=== PATIENT | female | born 1955 | race African-American/Black ===

== ENCOUNTER 2017-09-15 16:42 | Emergency (ER) | payer MEDICARE, OTHER ==
[~2017-09-15] VITALS: Ht 139.7 cm; Wt 53.1 kg
[~2017-09-15 16:42] MED LIST: ABACAVIR300 MG ORAL; CALCIUM + VITA1 EAC1 PO; CIPRO500 MG PO; COLACE100 MG ORAL; FERROUS SULFAT325 MG ORAL; JANUVIA50 MG ORAL; LORAZEPAM2 MG ORAL; LORAZEPAM2 MG/1 M4 ORAL; METRONIDAZOLE500 MG ORAL; TIVICAY50 MG ORAL; ZYPREXA2.5 MG ORAL
[2017-09-15 18:14] LABS: BASOPHILS % (AUTO) 0.8 % (0.0-2.0); EOSINOPHILS % (AUTO) 1.8 % (0.0-3.0); HEMATOCRIT 35.5 % (37.0-47.0); HEMOGLOBIN 11.5 G/DL (12.0-16.0); LYMPHOCYTES % (AUTO) 17.8 % (20.0-45.0); MEAN CORPUSCULAR VOLUME 103 FL (80-99); NEUTROPHILS % (AUTO) 69.6 % (45.0-75.0); PLATELET COUNT 129 K/UL (150-450); RED BLOOD COUNT 3.46 M/UL (4.20-5.40); RED CELL DISTRIBUTION WIDTH 11.9 % (11.6-14.8); WHITE BLOOD COUNT 8.3 K/UL (4.8-10.8)
[2017-09-15 18:15] LABS: APPEARANCE,URINE SLIGHTLY CLOUDY; BILIRUBIN, URINE NEGATIVE (NEGATIVE); GLUCOSE, URINE (UA) NEGATIVE (NEGATIVE); KETONES,URINE 1+ (NEGATIVE); LEUKOCYTE ESTERASE ,URINE 2+ (NEGATIVE); NITRITE,URINE NEGATIVE (NEGATIVE); PH,URINE 5 (4.5-8.0); PROTEIN,URINE 3+ (NEGATIVE); UROBILINOGEN,URINE NORMAL MG/DL (0.0-1.0)
[2017-09-15 18:17] LABS: COLOR,URINE YELLOW
[2017-09-15 18:27] LABS: ANION GAP 8 mmol/L (5-15); BLOOD UREA NITROGEN 22 mg/dL (7-18); CALCIUM 8.3 MG/DL (8.5-10.1); CARBON DIOXIDE 23 MMOL/L (21-32); CHLORIDE 105 MMOL/L (98-107); CREATININE 1.6 MG/DL (0.55-1.30); INR 1.1 (0.9-1.1); SODIUM 136 MMOL/L (136-145)
[2017-09-15 18:33] LABS: ALANINE AMINOTRANSFERASE 21 U/L (12-78); ALBUMIN 2.9 G/DL (3.4-5.0); ALBUMIN/GLOBULIN RATIO 0.6 (1.0-2.7); ALKALINE PHOSPHATASE 212 U/L (46-116); ASPARTATE AMINO TRANSFERASE 31 U/L (15-37); BILIRUBIN,TOTAL 0.4 MG/DL (0.2-1.0)
[2017-09-15] MEDS ORDERED: Morphine Sulfate 4mg/ml Inj IVP ONE (19:15)
[2017-09-15 19:36] VITALS: BP 118/68
[2017-09-15] MEDS ORDERED: metroNIDAZOLE 500mg tab ORAL ONE (19:45)
[2017-09-15] MEDS ORDERED: Ciprofloxacin 500mg tab ORAL ONE (19:45)
[2017-09-15] MEDS ORDERED: ACETAMINOPHEN-1 EAC1 ORAL (19:57)
[2017-09-15] MEDS ORDERED: METRONIDAZOLE500 MG ORAL (19:57)
[2017-09-15] MEDS ORDERED: CIPROFLOXACIN750 M1 PO (19:57)
[2017-09-15 20:07] VITALS: BP 118/68
--- NOTE | 2017-09-15 23:03 | Emergency Room Report ---
History of Present Illness General Chief Complaint: Abdominal Pain Source: Patient Present Illness HPI The patient is a 61-year-old female with a history of diverticulosis presenting for left lower abdominal pain for the past 2 days. She has had diverticulitis in the past and states that this feels similar. Pain is a 9/10 sharp sensation and does not radiate from there. No known provoking or relieving factors. She also admits to nausea. She denies other symptoms including vomiting, diarrhea, constipation, melena, hematochezia, fever, chills Allergies: Coded Allergies: ASPIRIN (Unverified Allergy, Unknown, Rash, 09/15/17) PENICILLINS (Unverified Allergy, Unknown, Rash, 09/15/17) Patient History Past Medical History: see triage record Pertinent Family History: none Reviewed Nursing Documentation: PMH: Agreed, PSxH: Agreed Nursing Documentation-PMH Past Medical History: No History, Except For Hx Diabetes: Yes Review of Systems All Other Systems: negative except mentioned in HPI Physical Exam Vital Signs Date Time Temp Pulse Resp B/P (MAP) Pulse Ox O2 Delivery O2 Flow Rate FiO2 09/15/17 17:01 98.4 90 18 111/72 97 Room Air Sp02 EP Interpretation: reviewed, normal General Appearance: no apparent distress, alert, GCS 15, non-toxic Head: normocephalic, atraumatic Eyes: bilateral eye normal inspection, bilateral eye PERRL Respiratory: chest non-tender, lungs clear, normal breath sounds, speaking full sentences Cardiovascular #1: regular rate, rhythm, no edema Gastrointestinal: normal bowel sounds, no mass, non-distended, tenderness - LLQ Musculoskeletal: back normal, gait/station normal, normal range of motion, non- tender Neurologic: alert, oriented x3, responsive, motor strength/tone normal, sensory intact, speech normal Psychiatric: judgement/insight normal, memory normal, mood/affect normal, no suicidal/homicidal ideation Skin: normal color, no rash, warm/dry, well hydrated Medical Decision Making PA Attestation Dr. Fox is my supervising physician. Patient management was discussed with my supervising physician Diagnostic Impression: Primary Impression: Diverticulitis ER Course The patient is a 61-year-old female with a history of diverticulosis presenting for left lower abdominal pain for the past 2 days Differential diagnoses considered include but not limited to gastritis, pancreatitis, appendicitis, AAA, ACS, , UTI PE: afebrile. NAD Abdomen is soft. There is tenderness to palpation of the left lower cordate only. No CVA tenderness. Normal bowel sounds. Nondistended Bloodwork unremarkable. No leukocytosis CT scan shows diverticulitis The patient is stable and will be treated with outpatient antibiotics. She is given her first dose here. She was given strict return precautions including if she gets a fever or if pain continues past 3 days. She understands Laboratory Tests Test 09/15/17 17:54 White Blood Count 8.3 K/UL (4.8-10.8) Red Blood Count 3.46 M/UL (4.20-5.40) L Hemoglobin 11.5 G/DL (12.0-16.0) L Hematocrit 35.5 % (37.0-47.0) L Mean Corpuscular Volume 103 FL (80-99) H Mean Corpuscular Hemoglobin 33.1 PG (27.0-31.0) H Mean Corpuscular Hemoglobin Concent 32.2 G/DL (32.0-36.0) Red Cell Distribution Width 11.9 % (11.6-14.8) Platelet Count 129 K/UL (150-450) L Mean Platelet Volume 6.7 FL (6.5-10.1) Neutrophils (%) (Auto) 69.6 % (45.0-75.0) Lymphocytes (%) (Auto) 17.8 % (20.0-45.0) L Monocytes (%) (Auto) 10.0 % (1.0-10.0) Eosinophils (%) (Auto) 1.8 % (0.0-3.0) Basophils (%) (Auto) 0.8 % (0.0-2.0) Prothrombin Time 12.0 SEC (9.30-11.50) H Prothrombin Time INR 1.1 (0.9-1.1) PTT 26 SEC (23-33) Urine Color Yellow Urine Appearance Slightly cloudy Urine pH 5 (4.5-8.0) Urine Specific [place] 1.020 (1.005-1.035) Urine Protein 3+ (NEGATIVE) H Urine Glucose (UA) Negative (NEGATIVE) Urine Ketones 1+ (NEGATIVE) H Urine Occult Blood 5+ (NEGATIVE) H Urine Nitrite Negative (NEGATIVE) Urine Bilirubin Negative (NEGATIVE) Urine Urobilinogen Normal MG/DL (0.0-1.0) Urine Leukocyte Esterase 2+ (NEGATIVE) H Urine RBC Tntc /HPF (0 - 2) H Urine WBC 2-4 /HPF (0 - 2) Urine Squamous Epithelial Cells Moderate /LPF (NONE/OCC) H Urine Bacteria Few /HPF (NONE) Sodium Level 136 MMOL/L (136-145) Potassium Level 5.0 MMOL/L (3.5-5.1) Chloride Level 105 MMOL/L (98-107) Carbon Dioxide Level 23 MMOL/L (21-32) Anion Gap 8 mmol/L (5-15) Blood Urea Nitrogen 22 mg/dL (7-18) H Creatinine 1.6 MG/DL (0.55-1.30) H Estimate Glomerular Filtration Rate 33.0 mL/min (>60) Glucose Level 179 MG/DL (74-106) H Calcium Level 8.3 MG/DL (8.5-10.1) L Total Bilirubin 0.4 MG/DL (0.2-1.0) Aspartate Amino Transferase (AST) 31 U/L (15-37) Alanine Aminotransferase (ALT) 21 U/L (12-78) Alkaline Phosphatase 212 U/L (46-116) H Total Protein 8.1 G/DL (6.4-8.2) Albumin 2.9 G/DL (3.4-5.0) L Globulin 5.2 g/dL Albumin/Globulin Ratio 0.6 (1.0-2.7) L Lipase 185 U/L (73-393) Lab Results Impression No leukocytosis CMP unremarkable CT/MRI/US Diagnostic Results CT/MRI/US Diagnostic Results : Imaging Test Ordered: CT scan of abdomen pelvis Impression There is diverticulitis of the distal descending and proximal sigmoid colon. No signs of abscess. No free fluid or obstruction Last Vital Signs Date Time Temp Pulse Resp B/P (MAP) Pulse Ox O2 Delivery O2 Flow Rate FiO2 09/15/17 20:07 98.4 88 18 118/68 97 Room Air Status: improved Disposition: HOME, SELF-CARE Condition: Improved Scripts Acetaminophen With Codeine (T#3) (TYLENOL #3 TAB*) Y Tab 1 TAB ORAL Q6HR Y for For Pain, #15 TAB Prov: ESAU MARTINEZ P.A. 09/15/17 Metronidazole* (FLAGYL*) 500 Mg Tablet 500 MG ORAL QID, #40 TAB 0 Refills Prov: ESAU MARTINEZ 09/15/17 Ciprofloxacin HCl (Ciprofloxacin HCl) 750 Mg Tablet 750 MG PO BID, #20 TAB Prov: ESAU MARTINEZ 09/15/17 Patient Instructions: Diverticulitis Additional Instructions: I discussed my findings with the patient. All questions and concerns have been answered. Treatment and medication compliance have been addressed. I advised the patient that they need to follow up with PMD in 3-5 days. Return to ED if symptoms worsen, new symptoms arise, or if needed for any reason. Patient verbalized understanding of discharge instructions. Return to the emergency department if you notice fever or continued pain past 3 days. ESAU MARTINEZ Sep 15, 2017 23:03
--- NOTE | 2017-09-16 09:04 | Diagnostic Imaging Report ---
Indication: Abdominal pain, nausea Technique: Spiral acquisitions obtained through the abdomen and pelvis. No oral contrast utilized, per emergency room physician request No IV contrast utilized, per referring physician request.. Multiplanar reconstructions were generated. Total dose length product 570.22 mGycm. CTDIvol(s) 12.91 mGy. Dose reduction achieved using automated exposure control Comparison: None Findings: There is fairly extensive colonic diverticulosis. There is infiltration of the pericolonic fat adjacent to the proximal sigmoid colon as well as fluid/phlegmon tracking along the adjacent fascial planes. There is associated wall thickening. No extraluminal gas or contained extraluminal fluid collections are demonstrated. The appendix is normal. No small bowel distention. No free or loculated intraperitoneal air or fluid is evident. Distal esophagus, stomach, duodenum are unremarkable. Normal caliber small bowel. Lack of IV contrast limits assessment of the solid organs. The liver demonstrates surface micronodularity. No focal abnormality. The gallbladder is surgically absent. No biliary ductal dilatation. The pancreas, spleen, adrenals are unremarkable. The kidneys demonstrate no parenchymal abnormality. There is slight bilateral perinephric fat stranding 6 x 4 cm soft tissue density is seen in the adnexal region to the right of midline. Uncertain as to whether this is part of the uterus or represents adnexal pathology. The bones are unremarkable. The included lung bases are clear. Impression: Positive for uncomplicated acute sigmoid diverticulitis Hepatic surface nodularity, suggestive of cirrhosis Right adnexal mass versus unusual uterine configuration versus exophytic uterine fibroid. Recommend further evaluation with pelvic sonography Evidence of prior cholecystectomy This agrees with the preliminary interpretation provided overnight by [facility] teleradiology service. The CT scanner at [facility] is accredited by the [employer] and the scans are performed using protocols designed to limit radiation exposure to as low as reasonably achievable to attain images of sufficient resolution adequate for diagnostic evaluation.
== END 2017-09-15 20:07 | disposition home or self-care (01) ==
LOC: EMR 19:06
DX: K57.32 Diverticulitis of large intestine without perforation or abscess without bleeding (principal); E11.9 Type 2 diabetes mellitus without complications; Z90.49 Acquired absence of other specified parts of digestive tract
CPT/HCPCS: 36415; 74176; 80053; 81003; 83690; 85025; 85610; 85730; 96361; 96374; 99284; J2270

== ENCOUNTER 2017-10-24 13:14 | Emergency (ER) | payer MEDICARE, OTHER ==
[~2017-10-24] VITALS: Ht 139.7 cm; Wt 53.1 kg
[~2017-10-24 13:14] MED LIST changes: +ACETAMINOPHEN-1 EAC1 ORAL; +CIPROFLOXACIN750 M1 PO
[2017-10-24 13:38] VITALS: BP 130/70
--- NOTE | 2017-10-24 13:50 | Emergency Room Report ---
History of Present Illness General Chief Complaint: Abdominal Pain Present Illness HPI 62 yo female complains of epigastric pain x3days. Denies radiation of pain. Also complains of nausea, no vomiting. Denies diarrhea, constipation. No chest pain, SOB, fever. Seen in ER one month ago for diverticulitis; states pain does not feel like then. Denies hx of GERD, PUD Denies use of pain medication today for relief of symptoms Hx of HIV, viral load normal, CD4 normal, current on medications Patient reports blood was in water of stool this morning; reports straining. Denies pencil-like stool. Allergies: Coded Allergies: ASPIRIN (Unverified Allergy, Unknown, Rash, 09/15/17) PENICILLINS (Unverified Allergy, Unknown, Rash, 09/15/17) Patient History Past Medical History: see triage record Reviewed Nursing Documentation: PMH: Agreed, PSxH: Agreed Nursing Documentation-PMH Hx Diabetes: Yes Hx Gastrointestinal Problems: Yes - diviticulitis Hx Dialysis: No - Kidney Disease Review of Systems All Other Systems: negative except mentioned in HPI Physical Exam Vital Signs Date Time Temp Pulse Resp B/P (MAP) Pulse Ox O2 Delivery O2 Flow Rate FiO2 10/24/17 13:28 98.7 84 18 129/70 98 Room Air 98.8 Sp02 EP Interpretation: reviewed, normal General Appearance: no apparent distress, alert, GCS 15, non-toxic Head: normocephalic, atraumatic Eyes: bilateral eye normal inspection, bilateral eye PERRL ENT: hearing grossly normal, normal pharynx, no angioedema, normal voice Neck: full range of motion, supple/symm/no masses Respiratory: chest non-tender, lungs clear, normal breath sounds, no respiratory distress, speaking full sentences Cardiovascular #1: regular rate, rhythm, no edema Gastrointestinal: normal bowel sounds, soft, no mass, non-distended, no guarding, no rebound, tenderness - epigastric, LUQ, other - negative Rovsing, negative TTP at McBurney's point, negative Rodriguez sign Rectal: normal rectal tone, heme positive stool - stool brown Genitourinary: no CVA tenderness Musculoskeletal: back normal, digits/nails normal, gait/station normal, normal range of motion, non-tender Neurologic: alert, oriented x3, responsive, motor strength/tone normal, sensory intact, speech normal Psychiatric: mood/affect normal Skin: no rash Lymphatic: no adenopathy Medical Decision Making PA Attestation Dr. Otero is my supervising Physician whom patient management has been discussed with. Diagnostic Impression: Primary Impression: Epigastric abdominal pain ER Course Patient presents to ER complaining of epigastric pain. DDx considered but are not limited to GERD, gastritis, PUD, pancreatitis, UTI. Patient vital signs WNL, patient is afebrile. Ordered labs, pain medication, Zofran, and Pepcid. Does not require imaging at this time. ER COURSE: Labs results unremarkable; consistent with previous visit to ER. Results discussed with patient. Patient resting comfortably in no acute distress, patient reports improvement of pain symptoms since initial presentation to ER. Patient able to tolerate foods PO and ambulate independently while in ER. Results discussed with Dr. Otero; agrees with current treatment and plan; patient is stable for discharge home and outpatient follow-up. DISCHARGE: Rx provided for Prilosec Rx provided for Tylenol At this time pt is stable for d/c to home with strict ER precautions. Patient is resting, in no acute distress, nontoxic appearing, able to ambulate without assistance. Will provide with patient care instructions and any necessary prescriptions. Patient to take medication as instructed. Care plan and follow-up instructions provided. Patient questions asked and answered. Patient instructed to follow-up with primary care provider in 2-3 days to discuss further treatment and referral to GI specialist for evaluation. Patient states understanding and agreement to treatment plan ER precautions given. Patient instructed to return to ER immediately for any new or worsening of symptoms including fever, chest pain, worsening abdominal pain, blood in stool. Labs Test 10/24/17 14:25 10/24/17 15:15 Urine Color Yellow Urine Appearance Clear Urine pH 6.5 (4.5-8.0) Urine Specific [place] 1.010 (1.005-1.035) Urine Protein 2+ (NEGATIVE) Urine Glucose (UA) Negative (NEGATIVE) Urine Ketones 1+ (NEGATIVE) Urine Occult Blood 5+ (NEGATIVE) Urine Nitrite Negative (NEGATIVE) Urine Bilirubin Negative (NEGATIVE) Urine Urobilinogen Normal MG/DL (0.0-1.0) Urine Leukocyte Esterase 1+ (NEGATIVE) Urine RBC 30-40 /HPF (0 - 2) Urine WBC 2-4 /HPF (0 - 2) Urine Squamous Epithelial Cells Few /LPF (NONE/OCC) Urine Bacteria Few /HPF (NONE) Sodium Level 140 MMOL/L (136-145) Potassium Level 4.6 MMOL/L (3.5-5.1) Chloride Level 106 MMOL/L (98-107) Carbon Dioxide Level 24 MMOL/L (21-32) Anion Gap 10 mmol/L (5-15) Blood Urea Nitrogen 20 mg/dL (7-18) Creatinine 1.4 MG/DL (0.55-1.30) Estimat Glomerular Filtration Rate 46.5 mL/min (>60) Glucose Level 161 MG/DL (74-106) Calcium Level 8.7 MG/DL (8.5-10.1) Total Bilirubin 0.7 MG/DL (0.2-1.0) Aspartate Amino Transf (AST/SGOT) 70 U/L (15-37) Alanine Aminotransferase (ALT/SGPT) 51 U/L (12-78) Alkaline Phosphatase 248 U/L (46-116) Troponin I 0.000 ng/mL (0.000-0.056) Total Protein 8.2 G/DL (6.4-8.2) Albumin 3.3 G/DL (3.4-5.0) Globulin 4.9 g/dL Albumin/Globulin Ratio 0.7 (1.0-2.7) Amylase Level 84 U/L (25-115) Lipase 106 U/L (73-393) White Blood Count 4.0 K/UL (4.8-10.8) Red Blood Count 3.13 M/UL (4.20-5.40) Hemoglobin 11.0 G/DL (12.0-16.0) Hematocrit 31.5 % (37.0-47.0) Mean Corpuscular Volume 101 FL (80-99) Mean Corpuscular Hemoglobin 35.2 PG (27.0-31.0) Mean Corpuscular Hemoglobin Concent 35.0 G/DL (32.0-36.0) Red Cell Distribution Width 13.9 % (11.6-14.8) Platelet Count 80 K/UL (150-450) Mean Platelet Volume 6.9 FL (6.5-10.1) Neutrophils (%) (Auto) % (45.0-75.0) Lymphocytes (%) (Auto) % (20.0-45.0) Monocytes (%) (Auto) % (1.0-10.0) Eosinophils (%) (Auto) % (0.0-3.0) Basophils (%) (Auto) % (0.0-2.0) Differential Total Cells Counted 100 Neutrophils % (Manual) 57 % (45-75) Lymphocytes % (Manual) 35 % (20-45) Monocytes % (Manual) 5 % (1-10) Eosinophils % (Manual) 3 % (0-3) Basophils % (Manual) 0 % (0-2) Band Neutrophils 0 % (0-8) Platelet Estimate Decreased Platelet Morphology Normal Hypochromasia 1+ Anisocytosis 1+ Macrocytosis 1+ Prothrombin Time 12.3 SEC (9.30-11.50) Prothromb Time International Ratio 1.2 (0.9-1.1) Activated Partial Thromboplast Time 30 SEC (23-33) Last Vital Signs Date Time Temp Pulse Resp B/P (MAP) Pulse Ox O2 Delivery O2 Flow Rate FiO2 10/24/17 13:28 98.7 84 18 129/70 98 Room Air 98.8 Disposition: HOME, SELF-CARE Condition: Stable Scripts Omeprazole Magnesium (PRILOSEC OTC) 20 Mg Tablet.dr 20 MG ORAL DAILY for 7 Days, #7 TAB Prov: Jay Jay Sandoval 10/24/17 Acetaminophen* (TYLENOL EXTRA STRENGTH*) 500 Mg Tablet 500 MG ORAL Q8H Y for Prn Headache/Temp > 101, #30 TAB 0 Refills Prov: Jay Jay Sandoval 10/24/17 Patient Instructions: Abdominal Pain, Adult Additional Instructions: Followup with primary care provider and request further followup with GI specialist. Take medications as directed. Patient questions asked and answered. ER precautions given, patient instructed to return to ER immediately for any new or worsening of symptoms. Jay Jay Sandoval Oct 24, 2017 13:50
[2017-10-24] MEDS ORDERED: Morphine Sulfate 2mg/ml Inj IVP ONE (14:00)
[2017-10-24 14:45] LABS: APPEARANCE,URINE CLEAR; BILIRUBIN, URINE NEGATIVE (NEGATIVE); GLUCOSE, URINE (UA) NEGATIVE (NEGATIVE); KETONES,URINE 1+ (NEGATIVE); LEUKOCYTE ESTERASE ,URINE 1+ (NEGATIVE); NITRITE,URINE NEGATIVE (NEGATIVE); PH,URINE 6.5 (4.5-8.0); PROTEIN,URINE 2+ (NEGATIVE); UROBILINOGEN,URINE NORMAL MG/DL (0.0-1.0)
[2017-10-24 15:02] LABS: COLOR,URINE YELLOW
[2017-10-24 15:04] LABS: ANION GAP 10 mmol/L (5-15); BLOOD UREA NITROGEN 20 mg/dL (7-18); CALCIUM 8.7 MG/DL (8.5-10.1); CARBON DIOXIDE 24 MMOL/L (21-32); CHLORIDE 106 MMOL/L (98-107); CREATININE 1.4 MG/DL (0.55-1.30); POTASSIUM 4.6 MMOL/L (3.5-5.1); SODIUM 140 MMOL/L (136-145)
[2017-10-24 15:09] LABS: ALANINE AMINOTRANSFERASE 51 U/L (12-78); ALBUMIN 3.3 G/DL (3.4-5.0); ALBUMIN/GLOBULIN RATIO 0.7 (1.0-2.7); ALKALINE PHOSPHATASE 248 U/L (46-116); AMYLASE 84 U/L (25-115); ASPARTATE AMINO TRANSFERASE 70 U/L (15-37); BILIRUBIN,TOTAL 0.7 MG/DL (0.2-1.0)
[2017-10-24 16:05] LABS: INR 1.2 (0.9-1.1)
[2017-10-24 16:06] LABS: HEMATOCRIT 31.5 % (37.0-47.0); MEAN CORPUSCULAR VOLUME 101 FL (80-99); PLATELET COUNT 80 K/UL (150-450); RED BLOOD COUNT 3.13 M/UL (4.20-5.40); RED CELL DISTRIBUTION WIDTH 13.9 % (11.6-14.8)
[2017-10-24] MEDS ORDERED: PRILOSEC OTC20 MG ORAL (18:00)
[2017-10-24] MEDS ORDERED: TYLENOL EXTRA500 MG ORAL (18:00)
[2017-10-24 18:45] VITALS: BP 134/63
== END 2017-10-24 19:28 | disposition home or self-care (01) ==
LOC: EMR 15:00
DX: R10.13 Epigastric pain (principal); R11.0 Nausea; Z88.0 Allergy status to penicillin; Z87.19 Personal history of other diseases of the digestive system; Z88.6 Allergy status to analgesic agent
CPT/HCPCS: 36415; 80053; 81003; 82150; 83690; 84484; 85007; 85025; 85610; 85730; 96361; 96372; 96374; 99284; J2270; J2405

== ENCOUNTER 2017-12-22 16:49 | Emergency (ER) | payer MEDICARE, OTHER ==
[~2017-12-22] VITALS: Ht 139.7 cm; Wt 54.4 kg
[~2017-12-22 16:49] MED LIST changes: +PRILOSEC OTC20 MG ORAL; +TYLENOL EXTRA500 MG ORAL
[2017-12-22] MEDS ORDERED: NOVOLOG100 UNIT/3 SUBQ (17:07)
[2017-12-22] MEDS ORDERED: TIVICAY50 MG ORAL (17:07)
[2017-12-22] MEDS ORDERED: ARTIFICIALS TEA30 M1 OP (17:07)
[2017-12-22] MEDS ORDERED: EPIVIR150 MG ORAL (17:07)
[2017-12-22] MEDS ORDERED: FOSAMAX70 MG ORAL (17:07)
[2017-12-22] MEDS ORDERED: VITAMIN D22000 UNIT PO (17:07)
[2017-12-22] MEDS ORDERED: LANTUS SOL100 UNIT/1 SUBQ (17:07)
--- NOTE | 2017-12-22 17:49 | Emergency Room Report ---
History of Present Illness General Chief Complaint: Abdominal Pain Source: Patient, Medical Record Present Illness HPI 62 yo female patient presents to ER complaining of lower abdominal pain. Patient reports hx of diverticulosis and states this feels like that. Reports pain 9/10. Previously seen in ER for similar symptoms. Denies blood in stool. Reports last BM today. Denies diarrhea. Reports seen by colo-rectal specialist this week, want to have surgery for diverticula but unable to because of poor liver function. Denies dysuria, hematuria. Denies fever, chest pain, SOB, neck pain, calf pain. Allergies: Coded Allergies: ASPIRIN (Unverified Allergy, Unknown, Rash, 09/15/17) PENICILLINS (Unverified Allergy, Unknown, Rash, 09/15/17) Patient History Past Medical History: see triage record Last Menstrual Period: long time ago Reviewed Nursing Documentation: PMH: Agreed; PSxH: Agreed Nursing Documentation-PMH Past Medical History: No History, Except For Hx Diabetes: Yes Hx Gastrointestinal Problems: Yes - diviticulitis Hx Dialysis: No - Kidney Disease Review of Systems All Other Systems: negative except mentioned in HPI Physical Exam Vital Signs Date Time Temp Pulse Resp B/P (MAP) Pulse Ox O2 Delivery O2 Flow Rate FiO2 12/22/17 17:02 98.8 108 18 114/72 96 Room Air 98.8 Sp02 EP Interpretation: reviewed, normal General Appearance: well appearing, alert, GCS 15, non-toxic, mild distress Head: normocephalic, atraumatic Eyes: bilateral eye normal inspection, bilateral eye PERRL ENT: hearing grossly normal, normal pharynx, no angioedema, normal voice, uvula midline, moist mucus membranes Neck: full range of motion Respiratory: lungs clear, normal breath sounds, no rhonchi, no respiratory distress, no accessory muscle use, no wheezing, speaking full sentences Cardiovascular #1: regular rate, rhythm, no edema Gastrointestinal: soft, no mass, non-distended, no rebound, tenderness - LLQ Musculoskeletal: back normal, digits/nails normal, gait/station normal, normal range of motion, non-tender Neurologic: alert, oriented x3, responsive, motor strength/tone normal, sensory intact Psychiatric: mood/affect normal Skin: no rash Lymphatic: no adenopathy Medical Decision Making PA Attestation Dr. Otero is my supervising Physician whom patient management has been discussed with. Diagnostic Impression: Primary Impression: Diverticulitis ER Course Pt. presents to the ED c/o abdominal pain. Ddx considered but are not limited to UTI, cholelithiasis, cholecystitis, pancreatitis, appendicitis, diverticulitis. Begin abdominal pain workup. Provided patient with pain medication. Vital signs: are WNL, pt. is afebrile. Pulse mildly elevated, will monitor during stay. Ordered labs, imaging, UA, and pain medication. ER COURSE: Labs consistent with previous visits. CBC shows no elevation in WBC CMP unremarkable, no elevation in LFTs, blood glucose elevated, followup outpatient. Lipase WNL PT,PTT WNL UA no nitrites, few bacteria, few WBC, low suspicion for UTI, does not require tx, will send urine for culture. CT shows thickened sigmoid colon concerning for diverticulitis/colitis and or neoplasm. Due to patient history, will treat for diverticulitis. Patient provided with copy of results. Instructed to followup with physician for further evaluation. Return to ER if new or worsening of symptoms. Vitals rechecked, WNL. Patient provided with Tylenol prior to discharge and monitored prior to discharge. Patient resting comfortably, in no acute distress, nontoxic appearing, smiling and able to ambulate independently. DISCHARGE: Rx provided for Metronidazole Rx provided for Ciprofloxacin Rx provided for Tylenol #3 At this time pt. is stable for d/c to home. Patient resting comfortably, in no acute distress, nontoxic appearing, talking without difficulty. Rx provided to patient. Patient to take medications as instructed Will provide with patient care instructions and any necessary prescriptions. Care plan and follow-up instructions provided. Patient instructed to follow-up with primary care provider in 3 - 5 days. Patient questions asked and answered. Patient reports understanding and agreement to treatment plan. ER precautions given. Patient instructed to return to ER immediately for any new or worsening of symptoms including but not limited to increasing SOB, persistent fever, worsening of pain symptoms, intractable vomiting, blood in stool, urine, and/or emesis. Labs Test 12/22/17 18:11 12/22/17 18:35 White Blood Count 8.0 K/UL (4.8-10.8) Red Blood Count 3.07 M/UL (4.20-5.40) Hemoglobin 11.4 G/DL (12.0-16.0) Hematocrit 30.7 % (37.0-47.0) Mean Corpuscular Volume 100 FL (80-99) Mean Corpuscular Hemoglobin 37.1 PG (27.0-31.0) Mean Corpuscular Hemoglobin Concent 37.2 G/DL (32.0-36.0) Red Cell Distribution Width 12.6 % (11.6-14.8) Platelet Count 102 K/UL (150-450) Mean Platelet Volume 7.0 FL (6.5-10.1) Neutrophils (%) (Auto) 70.0 % (45.0-75.0) Lymphocytes (%) (Auto) 17.5 % (20.0-45.0) Monocytes (%) (Auto) 10.5 % (1.0-10.0) Eosinophils (%) (Auto) 1.3 % (0.0-3.0) Basophils (%) (Auto) 0.7 % (0.0-2.0) Prothrombin Time 10.3 SEC (9.30-11.50) Prothromb Time International Ratio 1.0 (0.9-1.1) Activated Partial Thromboplast Time 29 SEC (23-33) Sodium Level 135 MMOL/L (136-145) Potassium Level 4.1 MMOL/L (3.5-5.1) Chloride Level 103 MMOL/L (98-107) Carbon Dioxide Level 22 MMOL/L (21-32) Anion Gap 11 mmol/L (5-15) Blood Urea Nitrogen 22 mg/dL (7-18) Creatinine 1.4 MG/DL (0.55-1.30) Estimat Glomerular Filtration Rate 38.4 mL/min (>60) Glucose Level 216 MG/DL (74-106) Calcium Level 8.6 MG/DL (8.5-10.1) Total Bilirubin 0.3 MG/DL (0.2-1.0) Aspartate Amino Transf (AST/SGOT) 34 U/L (15-37) Alanine Aminotransferase (ALT/SGPT) 32 U/L (12-78) Alkaline Phosphatase 251 U/L (46-116) Total Protein 8.1 G/DL (6.4-8.2) Albumin 3.0 G/DL (3.4-5.0) Globulin 5.1 g/dL Albumin/Globulin Ratio 0.6 (1.0-2.7) Lipase 229 U/L (73-393) Urine Color Pale yellow Urine Appearance Clear Urine pH 6.5 (4.5-8.0) Urine Specific [place] 1.010 (1.005-1.035) Urine Protein 2+ (NEGATIVE) Urine Glucose (UA) Negative (NEGATIVE) Urine Ketones Negative (NEGATIVE) Urine Occult Blood 5+ (NEGATIVE) Urine Nitrite Negative (NEGATIVE) Urine Bilirubin Negative (NEGATIVE) Urine Urobilinogen Normal MG/DL (0.0-1.0) Urine Leukocyte Esterase 1+ (NEGATIVE) Urine RBC 2-4 /HPF (0 - 2) Urine WBC 0-2 /HPF (0 - 2) Urine Squamous Epithelial Cells Few /LPF (NONE/OCC) Urine Bacteria Few /HPF (NONE) Urine Yeast Few /HPF (NONE) Urine HCG, Qualitative Negative (NEGATIVE) CT/MRI/US Diagnostic Results CT/MRI/US Diagnostic Results : Imaging Test Ordered: CT abdomen pelvis with contrast Impression [facility] Thickened sigmoid colon concerning for diverticulitis/colitis and/or neoplasm. No pneumatosis, abscess, or free air. No SBO or appendicitis. No hydronephrosis. Possible uterine fibroid or right adnexal lesion. Last Vital Signs Date Time Temp Pulse Resp B/P (MAP) Pulse Ox O2 Delivery O2 Flow Rate FiO2 12/22/17 17:02 98.8 108 18 114/72 96 Room Air 98.8 Disposition: HOME, SELF-CARE Condition: Stable Scripts Metronidazole* (FLAGYL*) 500 Mg Tablet 500 MG ORAL THREE TIMES A DAY for 7 Days, #21 TAB 0 Refills Prov: Jay Jay Sandoval.A. 12/22/17 Ciprofloxacin Hcl* (CIPROFLOXACIN HCL*) 500 Mg Tablet 500 MG ORAL EVERY 12 HOURS for 7 Days, #14 TAB 0 Refills Prov: Jay Jay Sandoval P.A. 12/22/17 Acetaminophen With Codeine (T#3) (TYLENOL #3 TAB*) Y Tab 1 TAB ORAL Q4H PRN for For Pain, #14 TAB Prov: Jay Jay Sandoval P.A. 12/22/17 Patient Instructions: Diverticulitis, [id number] Additional Instructions: Followup with primary care provider in 3 -5 days. Take medications as directed. Patient questions asked and answered. ER precautions given, patient instructed to return to ER immediately for any new or worsening of symptoms. Jay Jay Sandoval Dec 22, 2017 17:49
[2017-12-22] MEDS ORDERED: Morphine Sulfate 4mg/ml Inj IVP ONE (18:00)
[2017-12-22 18:18] VITALS: BP 114/72
[2017-12-22 18:39] LABS: BASOPHILS % (AUTO) 0.7 % (0.0-2.0); EOSINOPHILS % (AUTO) 1.3 % (0.0-3.0); HEMATOCRIT 30.7 % (37.0-47.0); HEMOGLOBIN 11.4 G/DL (12.0-16.0); LYMPHOCYTES % (AUTO) 17.5 % (20.0-45.0); MEAN CORPUSCULAR VOLUME 100 FL (80-99); MONOCYTES % (AUTO) 10.5 % (1.0-10.0); PLATELET COUNT 102 K/UL (150-450); RED BLOOD COUNT 3.07 M/UL (4.20-5.40); RED CELL DISTRIBUTION WIDTH 12.6 % (11.6-14.8)
[2017-12-22 18:45] LABS: APPEARANCE,URINE CLEAR; BILIRUBIN, URINE NEGATIVE (NEGATIVE); COLOR,URINE PALE YELLOW; GLUCOSE, URINE (UA) NEGATIVE (NEGATIVE); KETONES,URINE NEGATIVE (NEGATIVE); LEUKOCYTE ESTERASE ,URINE 1+ (NEGATIVE); NITRITE,URINE NEGATIVE (NEGATIVE); PH,URINE 6.5 (4.5-8.0); PROTEIN,URINE 2+ (NEGATIVE); UROBILINOGEN,URINE NORMAL MG/DL (0.0-1.0)
[2017-12-22 18:49] LABS: ANION GAP 11 mmol/L (5-15); BLOOD UREA NITROGEN 22 mg/dL (7-18); CALCIUM 8.6 MG/DL (8.5-10.1); CARBON DIOXIDE 22 MMOL/L (21-32); CHLORIDE 103 MMOL/L (98-107); CREATININE 1.4 MG/DL (0.55-1.30); POTASSIUM 4.1 MMOL/L (3.5-5.1); SODIUM 135 MMOL/L (136-145)
[2017-12-22 18:53] LABS: ALANINE AMINOTRANSFERASE 32 U/L (12-78); ALBUMIN/GLOBULIN RATIO 0.6 (1.0-2.7); ALKALINE PHOSPHATASE 251 U/L (46-116); ASPARTATE AMINO TRANSFERASE 34 U/L (15-37); BILIRUBIN,TOTAL 0.3 MG/DL (0.2-1.0)
[2017-12-22 20:00] VITALS: BP 109/69
[2017-12-22] MEDS ORDERED: METRONIDAZOLE500 MG ORAL (20:28)
[2017-12-22] MEDS ORDERED: ACETAMINOPHEN-1 EAC1 ORAL (20:28)
[2017-12-22] MEDS ORDERED: CIPROFLOXACIN500 M2 ORAL (20:28)
[2017-12-22] MEDS ORDERED: Acetaminophen 500mg (ES) tab ORAL ONE ×2 (20:55→21:15)
[2017-12-22 21:21] VITALS: BP 109/69
--- NOTE | 2017-12-23 09:30 | Diagnostic Imaging Report ---
Clinical Indication: Lower abdominal pain, history of diverticulosis Technique: Patient given oral contrast. IV administration nonionic contrast. Venous phase spiral acquisition obtained through the abdomen and pelvis. Multiplanar reconstructions were generated. Total dose length product 603.51 mGycm. CTDIvol(s) 13.14 mGy. Dose reduction achieved using automated exposure control Comparison: 09/15/[address] scan Findings: Again demonstrated is inflammatory change surrounding the junction of the distal descending and proximal sigmoid colon. A surgical clip is seen in the vicinity. Fluid is seen tracking up the left paracolic gutter. There is associated thickening of the sigmoid lumen. Findings are very similar to the previous exam. No extraluminal gas is demonstrated. The appendix is not definitely visualized, but no findings to suggest acute appendicitis are evident. Contrast is seen throughout the entirety of the small bowel, which is nondistended, and a small distance into the colon. No free or loculated intraperitoneal air or fluid other than the abnormalities previously described. The gallbladder is surgically absent. The liver demonstrates nodular surface contour, consistent with cirrhosis. No biliary ductal dilatation. The pancreas, spleen, adrenals, kidneys are all unremarkable. No retroperitoneal or mesenteric mass or adenopathy. Uterus demonstrates a large exophytic fibroid. No adnexal mass. The included lung bases are clear. The bones are unremarkable. Impression: Findings are consistent with acute diverticulitis of the descending/sigmoid colon junction. Note the findings are very similar to those seen on a prior study 09/15/2017. Somewhat denser as to whether this represents recurrent acute disease versus residual disease from a previous episode, although suspect the former Nodular hepatic surface contour, consistent with cirrhosis. Evidence of prior cholecystectomy Large uterine fibroid, also previously reported This agrees with the preliminary interpretation provided overnight by [employer] teleradiology service. The CT scanner at [facility] is accredited by the [employer] and the scans are performed using protocols designed to limit radiation exposure to as low as reasonably achievable to attain images of sufficient resolution adequate for diagnostic evaluation.
== END 2017-12-22 21:24 | disposition home or self-care (01) ==
LOC: EMR 18:46
DX: K57.32 Diverticulitis of large intestine without perforation or abscess without bleeding (principal); Z88.0 Allergy status to penicillin; Z88.6 Allergy status to analgesic agent; E11.9 Type 2 diabetes mellitus without complications; D25.9 Leiomyoma of uterus, unspecified; Z90.49 Acquired absence of other specified parts of digestive tract
CPT/HCPCS: 36415; 74177; 80053; 81003; 81025; 83690; 85025; 85610; 85730; 87086; 96374; 96375; 99284; J2270; J2405; Q9967